=== PATIENT | male | born 1960 | race Hispanic/Latino ===

== ENCOUNTER 2020-02-22 20:30 | Inpatient (IN) | payer MEDICARE ==
[2020-02-22] MEDS ORDERED: LORazepam 2 MG/ML VIAL ONE (20:45)
[2020-02-22] MEDS ORDERED: LORazepam 2 MG/ML VIAL IV ONE ×2 (20:48→21:42)
[2020-02-22] MEDS ORDERED: ONDANSETRON 4 MG/2 ML INJ IV ONE (20:53)
--- NOTE | 2020-02-22 21:01 | Emergency Department Report ---
ED Altered Mental Status HPI - General Chief Complaint: Altered Mental Status Stated Complaint: UNCONSCIOUSNESS Time Seen by Provider: 02/22/20 20:52 Source: EMS Mode of arrival: Stretcher Limitations: Other - History of Present Illness Initial Comments: Patient is 59 years old male with history of diabetes and left below knee amputation. Patient brought to the emergency room via EMS from home for evaluation of altered mental status. EMS stated that when they arrived at the scene patient was on the floor unresponsive however patient became combative and very agitated in route to the ER. EMS also reported seizure-like activity that aborted by itself just prior to coming to the ER. Family called 911 because patient was not responding to their call. Upon arrival to the ER patient is combative with a blood pressure of 220/120. Patient received Ativan 2 mg IV for sedation. Patient also given labetalol 20 mg IV. MD Complaint: altered mental status, decreased responsiveness -: unknown - Related Data Home Medications Medication Instructions Recorded Confirmed Last Taken Insulin Glargine,Hum.rec.anlog 35 unit SQ QDAY 09/14/14 01/10/16 01/09/16 08:00 [Lantus Solostar] 34 UNITS Gabapentin [Neurontin] 400 mg PO Q8HR 01/09/16 01/09/16 01/10/16 06:00 Insulin Lispro [HumaLOG VIAL] 0 units SQ AC 01/09/16 01/10/16 01/08/16 Omeprazole Magnesium [PriLOSEC Otc] 20 mg PO QDAY 01/09/16 01/10/16 01/09/16 06:00 Oxycodone HCl/Acetaminophen 1 each PO Q4-6H PRN 01/09/16 01/09/16 01/10/16 06:00 [Percocet 10/325 mg] Sertraline [Zoloft] 50 mg PO QDAY 01/09/16 01/10/16 01/09/16 19:00 Previous Rx's Medication Instructions Recorded Last Taken Type Losartan [Cozaar] 25 mg PO QDAY #30 tablet 10/31/15 01/06/16 Rx Gabapentin 400 mg PO Q8HR capsule 01/11/16 Unknown Rx Insulin Glargine [Lantus VIAL] 35 units SUB-Q QHS units 01/11/16 Unknown Rx Insulin Glulisine [Apidra] 0 units SUB-Q ACHS units 01/11/16 Unknown Rx Losartan [Cozaar] 25 mg PO QDAY tablet 01/11/16 Unknown Rx Sertraline [Zoloft] 50 mg PO QDAY tablet 01/11/16 Unknown Rx Sodium Chloride 0.9% 1000 ml [NaCl 1,000 ml IV DIRECT bag 01/11/16 Unknown Rx 0.9 1000 ML] oxyCODONE /ACETAMINOPHEN [Percocet 2 tab PO Q6HR PRN #30 tablet 01/11/16 Unknown Rx 5/325 mg] Allergies Allergy/AdvReac Type Severity Reaction Status Date / Time Sulfa (Sulfonamide Allergy Hives, Verified 09/15/14 11:22 Antibiotics) Itching Iodinated Contrast Media AdvReac Vomiting Verified 09/15/14 11:22 [Iodinated Contrast Media - IV Dye] ED Review of Systems ROS: Stated complaint: UNCONSCIOUSNESS Other details as noted in HPI Comment: Unobtainable due to pts medical conditions ED Past Medical Hx - Past Medical History Previous Medical History?: Yes Hx Hypertension: Yes Hx Congestive Heart Failure: No Hx Diabetes: Yes (:For last 5yrs) Hx Liver Disease: Yes (Hep C, cirrhosis, portal HTN) Hx Arthritis: Yes (:in shoulders) Hx Kidney Stones: Yes Hx Asthma: No Hx COPD: No Hx HIV: No - Surgical History Past Surgical History?: No Hx Pacemaker: No - Social History Smoking Status: Unknown if ever smoked - Medications Home Medications: Home Medications Medication Instructions Recorded Confirmed Last Taken Type Insulin Glargine,Hum.rec.anlog 35 unit SQ QDAY 09/14/14 01/10/16 01/09/16 08:00 History [Lantus Solostar] 34 UNITS Losartan [Cozaar] 25 mg PO QDAY #30 tablet 10/31/15 01/10/16 01/06/16 Rx Gabapentin [Neurontin] 400 mg PO Q8HR 01/09/16 01/09/16 01/10/16 06:00 History Insulin Lispro [HumaLOG VIAL] 0 units SQ AC 01/09/16 01/10/16 01/08/16 History Omeprazole Magnesium [PriLOSEC Otc] 20 mg PO QDAY 01/09/16 01/10/16 01/09/16 06:00 History Oxycodone HCl/Acetaminophen 1 each PO Q4-6H PRN 01/09/16 01/09/16 01/10/16 06:00 History [Percocet 10/325 mg] Sertraline [Zoloft] 50 mg PO QDAY 01/09/16 01/10/16 01/09/16 19:00 History Gabapentin 400 mg PO Q8HR capsule 01/11/16 Unknown Rx Insulin Glargine [Lantus VIAL] 35 units SUB-Q QHS units 01/11/16 Unknown Rx Insulin Glulisine [Apidra] 0 units SUB-Q ACHS units 01/11/16 Unknown Rx Losartan [Cozaar] 25 mg PO QDAY tablet 01/11/16 Unknown Rx Sertraline [Zoloft] 50 mg PO QDAY tablet 01/11/16 Unknown Rx Sodium Chloride 0.9% 1000 ml [NaCl 1,000 ml IV DIRECT bag 01/11/16 Unknown Rx 0.9 1000 ML] oxyCODONE /ACETAMINOPHEN [Percocet 2 tab PO Q6HR PRN #30 tablet 01/11/16 Unknown Rx 5/325 mg] ED Physical Exam - General Limitations: Other General appearance: anxious, other (AGITATED) - Head Head exam: Present: atraumatic, normocephalic, normal inspection - Eye Eye exam: Present: PERRL - ENT ENT exam: Present: normal exam, normal orophraynx, mucous membranes moist - Neck Neck exam: Present: normal inspection, full ROM. Absent: tenderness, meningismus - Respiratory Respiratory exam: Present: normal lung sounds bilaterally - Cardiovascular Cardiovascular Exam: Present: regular rate, normal rhythm, normal heart sounds - GI/Abdominal GI/Abdominal exam: Present: soft, normal bowel sounds. Absent: distended, tenderness, guarding, rebound, rigid, organomegaly, mass, bruit, pulsatile mass, hernia - Extremities Exam Extremities exam: Present: normal inspection - Back Exam Back exam: Present: normal inspection. Absent: CVA tenderness (R), CVA tenderness (L) - Neurological Exam Neurological exam: Present: alert, altered, CN II-XII intact. Absent: motor sensory deficit - Psychiatric Psychiatric exam: Present: agitated, anxious - Skin Skin exam: Present: warm, intact, normal color ED Course Vital Signs 02/22/20 02/22/20 02/22/20 20:57 20:59 21:00 Pulse Rate Respiratory Rate Blood Pressure 222/113 203/114 O2 Sat by Pulse 99 Oximetry 02/22/20 02/22/20 02/22/20 21:01 21:15 21:37 Pulse Rate 101 H Respiratory 17 13 Rate Blood Pressure 203/114 203/114 203/114 O2 Sat by Pulse 100 97 Oximetry 02/22/20 02/22/20 02/22/20 21:58 22:15 22:31 Pulse Rate Respiratory 20 Rate Blood Pressure 203/114 225/91 O2 Sat by Pulse 98 99 96 Oximetry 02/22/20 02/22/20 02/22/20 22:35 22:41 22:50 Pulse Rate 111 H Respiratory Rate Blood Pressure 225/91 225/91 203/114 O2 Sat by Pulse 99 99 97 Oximetry 02/22/20 02/22/20 02/22/20 23:01 23:15 23:21 Pulse Rate Respiratory Rate Blood Pressure 203/114 203/114 203/114 O2 Sat by Pulse 93 98 98 Oximetry 02/22/20 02/23/20 02/23/20 23:32 00:20 00:30 Pulse Rate Respiratory Rate Blood Pressure 116/73 174/94 189/106 O2 Sat by Pulse Oximetry - Lab Data Result diagrams: 02/22/20 21:10 02/23/20 14:55 Lab Results 02/22/20 02/22/20 02/22/20 Range/Units 21:10 21:10 21:10 WBC 15.6 H (4.5-11.0) K/mm3 RBC 4.82 (3.65-5.03) M/mm3 Hgb 15.2 (11.8-15.2) gm/dl Hct 45.4 (35.5-45.6) % MCV 94 (84-94) fl MCH 32 (28-32) pg MCHC 34 (32-34) % RDW 14.1 (13.2-15.2) % Plt Count 79 L (140-440) K/mm3 Add Manual Diff Complete Total Counted 100 Seg Neutrophils % Reel Stripper Seg Neuts % (Manual) 90.0 H (40.0-70.0) % Band Neutrophils % 2.0 % Lymphocytes % (Manual) 4.0 L (13.4-35.0) % Reactive Lymphs % (Man) 0 % Monocytes % (Manual) 4.0 (0.0-7.3) % Eosinophils % (Manual) 0 (0.0-4.3) % Basophils % (Manual) 0 (0.0-1.8) % Metamyelocytes % 0 % Myelocytes % 0 % Promyelocytes % 0 % Blast Cells % 0 % Nucleated RBC % Not Reportable Seg Neutrophils # Man 14.0 H (1.8-7.7) K/mm3 Band Neutrophils # 0.3 K/mm3 Lymphocytes # (Manual) 0.6 L (1.2-5.4) K/mm3 Abs React Lymphs (Man) 0.0 K/mm3 Monocytes # (Manual) 0.6 (0.0-0.8) K/mm3 Eosinophils # (Manual) 0.0 (0.0-0.4) K/mm3 Basophils # (Manual) 0.0 (0.0-0.1) K/mm3 Metamyelocytes # 0.0 K/mm3 Myelocytes # 0.0 K/mm3 Promyelocytes # 0.0 K/mm3 Blast Cells # 0.0 K/mm3 WBC Morphology Not Reportable Hypersegmented Neuts Not Reportable Hyposegmented Neuts Not Reportable Hypogranular Neuts Not Reportable Smudge Cells Not Reportable Toxic Granulation Not Reportable Toxic Vacuolation Not Reportable Dohle Bodies Not Reportable Pelger-Huet Anomaly Not Reportable Yoan Rods Not Reportable Platelet Estimate Consistent w auto Clumped Platelets Not Reportable Plt Clumps, EDTA Not Reportable Large Platelets Not Reportable Giant Platelets Not Reportable Platelet Satelliting Not Reportable Plt Morphology Comment Not Reportable RBC Morphology Normal Dimorphic RBCs Not Reportable Polychromasia Not Reportable Hypochromasia Not Reportable Poikilocytosis Not Reportable Anisocytosis Not Reportable Microcytosis Not Reportable Macrocytosis Not Reportable Spherocytes Not Reportable Pappenheimer Bodies Not Reportable Sickle Cells Not Reportable Target Cells Not Reportable Tear Drop Cells Not Reportable Ovalocytes Not Reportable Helmet Cells Not Reportable Barrientos-Gideon Bodies Not Reportable [place] Rings Not Reportable Patrick Cells Not Reportable Bite Cells Not Reportable Crenated Cell Not Reportable Elliptocytes Not Reportable Acanthocytes (Spur) Not Reportable Rouleaux Not Reportable Hemoglobin C Crystals Not Reportable Schistocytes Not Reportable Malaria parasites Not Reportable Atul Bodies Not Reportable Hem Pathologist Commnt No Sodium 137 (137-145) mmol/L Potassium 4.9 (3.6-5.0) mmol/L Chloride 100.4 (98-107) mmol/L Carbon Dioxide 20 L (22-30) mmol/L Anion Gap 22 mmol/L BUN 21 H (9-20) mg/dL Creatinine 1.5 H (0.8-1.3) mg/dL Estimated GFR 48 ml/min BUN/Creatinine Ratio 14 % Glucose 158 H (75-100) mg/dL Lactic Acid 6.40 H* (0.7-2.0) mmol/L Calcium 9.6 (8.4-10.2) mg/dL Total Bilirubin 0.90 (0.1-1.2) mg/dL Direct Bilirubin 0.3 H (0-0.2) mg/dL Indirect Bilirubin 0.6 mg/dL AST 31 (5-40) units/L ALT 30 (7-56) units/L Alkaline Phosphatase 87 (35-129) units/L Ammonia (25-60) umol/L Total Creatine Kinase 393 H (55-170) units/L Troponin T 0.012 (0.00-0.029) ng/mL Total Protein 7.9 (6.3-8.2) g/dL Albumin 4.3 (3.9-5) g/dL Albumin/Globulin Ratio 1.2 % TSH (0.270-4.200) mlU/mL Plasma/Serum Alcohol (0-0.07) % 02/22/20 02/22/20 02/22/20 Range/Units 21:10 21:10 21:10 WBC (4.5-11.0) K/mm3 RBC (3.65-5.03) M/mm3 Hgb (11.8-15.2) gm/dl Hct (35.5-45.6) % MCV (84-94) fl MCH (28-32) pg MCHC (32-34) % RDW (13.2-15.2) % Plt Count (140-440) K/mm3 Add Manual Diff Total Counted Seg Neutrophils % Seg Neuts % (Manual) (40.0-70.0) % Band Neutrophils % % Lymphocytes % (Manual) (13.4-35.0) % Reactive Lymphs % (Man) % Monocytes % (Manual) (0.0-7.3) % Eosinophils % (Manual) (0.0-4.3) % Basophils % (Manual) (0.0-1.8) % Metamyelocytes % % Myelocytes % % Promyelocytes % % Blast Cells % % Nucleated RBC % Seg Neutrophils # Man (1.8-7.7) K/mm3 Band Neutrophils # K/mm3 Lymphocytes # (Manual) (1.2-5.4) K/mm3 Abs React Lymphs (Man) K/mm3 Monocytes # (Manual) (0.0-0.8) K/mm3 Eosinophils # (Manual) (0.0-0.4) K/mm3 Basophils # (Manual) (0.0-0.1) K/mm3 Metamyelocytes # K/mm3 Myelocytes # K/mm3 Promyelocytes # K/mm3 Blast Cells # K/mm3 WBC Morphology Hypersegmented Neuts Hyposegmented Neuts Hypogranular Neuts Smudge Cells Toxic Granulation Toxic Vacuolation Dohle Bodies Pelger-Huet Anomaly Yoan Rods Platelet Estimate Clumped Platelets Plt Clumps, EDTA Large Platelets Giant Platelets Platelet Satelliting Plt Morphology Comment RBC Morphology Dimorphic RBCs Polychromasia Hypochromasia Poikilocytosis Anisocytosis Microcytosis Macrocytosis Spherocytes Pappenheimer Bodies Sickle Cells Target Cells Tear Drop Cells Ovalocytes Helmet Cells Barrientos-Gideon Bodies [place] Rings Patrick Cells Bite Cells Crenated Cell Elliptocytes Acanthocytes (Spur) Rouleaux Hemoglobin C Crystals Schistocytes Malaria parasites Atul Bodies Hem Pathologist Commnt Sodium (137-145) mmol/L Potassium (3.6-5.0) mmol/L Chloride (98-107) mmol/L Carbon Dioxide (22-30) mmol/L Anion Gap mmol/L BUN (9-20) mg/dL Creatinine (0.8-1.3) mg/dL Estimated GFR ml/min BUN/Creatinine Ratio % Glucose (75-100) mg/dL Lactic Acid (0.7-2.0) mmol/L Calcium (8.4-10.2) mg/dL Total Bilirubin (0.1-1.2) mg/dL Direct Bilirubin (0-0.2) mg/dL Indirect Bilirubin mg/dL AST (5-40) units/L ALT (7-56) units/L Alkaline Phosphatase (35-129) units/L Ammonia 32.0 (25-60) umol/L Total Creatine Kinase (55-170) units/L Troponin T (0.00-0.029) ng/mL Total Protein (6.3-8.2) g/dL Albumin (3.9-5) g/dL Albumin/Globulin Ratio % TSH 4.520 H (0.270-4.200) mlU/mL Plasma/Serum Alcohol < 0.01 (0-0.07) % 02/22/20 02/22/20 Range/Units 22:28 22:28 WBC (4.5-11.0) K/mm3 RBC (3.65-5.03) M/mm3 Hgb (11.8-15.2) gm/dl Hct (35.5-45.6) % MCV (84-94) fl MCH (28-32) pg MCHC (32-34) % RDW (13.2-15.2) % Plt Count (140-440) K/mm3 Add Manual Diff Total Counted Seg Neutrophils % Seg Neuts % (Manual) (40.0-70.0) % Band Neutrophils % % Lymphocytes % (Manual) (13.4-35.0) % Reactive Lymphs % (Man) % Monocytes % (Manual) (0.0-7.3) % Eosinophils % (Manual) (0.0-4.3) % Basophils % (Manual) (0.0-1.8) % Metamyelocytes % % Myelocytes % % Promyelocytes % % Blast Cells % % Nucleated RBC % Seg Neutrophils # Man (1.8-7.7) K/mm3 Band Neutrophils # K/mm3 Lymphocytes # (Manual) (1.2-5.4) K/mm3 Abs React Lymphs (Man) K/mm3 Monocytes # (Manual) (0.0-0.8) K/mm3 Eosinophils # (Manual) (0.0-0.4) K/mm3 Basophils # (Manual) (0.0-0.1) K/mm3 Metamyelocytes # K/mm3 Myelocytes # K/mm3 Promyelocytes # K/mm3 Blast Cells # K/mm3 WBC Morphology Hypersegmented Neuts Hyposegmented Neuts Hypogranular Neuts Smudge Cells Toxic Granulation Toxic Vacuolation Dohle Bodies Pelger-Huet Anomaly Yoan Rods Platelet Estimate Clumped Platelets Plt Clumps, EDTA Large Platelets Giant Platelets Platelet Satelliting Plt Morphology Comment RBC Morphology Dimorphic RBCs Polychromasia Hypochromasia Poikilocytosis Anisocytosis Microcytosis Macrocytosis Spherocytes Pappenheimer Bodies Sickle Cells Target Cells Tear Drop Cells Ovalocytes Helmet Cells Barrientos-Gideon Bodies [place] Rings [place] Cells Bite Cells Crenated Cell Elliptocytes Acanthocytes (Spur) Rouleaux Hemoglobin C Crystals Schistocytes Malaria parasites Atul Bodies Hem Pathologist Commnt Sodium (137-145) mmol/L Potassium (3.6-5.0) mmol/L Chloride (98-107) mmol/L Carbon Dioxide (22-30) mmol/L Anion Gap mmol/L BUN (9-20) mg/dL Creatinine (0.8-1.3) mg/dL Estimated GFR ml/min BUN/Creatinine Ratio % Glucose (75-100) mg/dL Lactic Acid 4.80 H* (0.7-2.0) mmol/L Calcium (8.4-10.2) mg/dL Total Bilirubin (0.1-1.2) mg/dL Direct Bilirubin (0-0.2) mg/dL Indirect Bilirubin mg/dL AST (5-40) units/L ALT (7-56) units/L Alkaline Phosphatase (35-129) units/L Ammonia (25-60) umol/L Total Creatine Kinase (55-170) units/L Troponin T 0.020 (0.00-0.029) ng/mL Total Protein (6.3-8.2) g/dL Albumin (3.9-5) g/dL Albumin/Globulin Ratio % TSH (0.270-4.200) mlU/mL Plasma/Serum Alcohol (0-0.07) % - Radiology Data Radiology results: report reviewed - Medical Decision Making Patient is 59 years old male with history of diabetes and left below knee amputation. Patient brought to the emergency room via EMS from home for evaluation of altered mental status. EMS stated that when they arrived at the scene patient was on the floor unresponsive however patient became combative and very agitated in route to the ER. EMS also reported seizure-like activity that aborted by itself just prior to coming to the ER. Family called 911 because patient was not responding to their call. Upon arrival to the ER patient is combative with a blood pressure of 220/120. Patient received Ativan 2 mg IV for sedation. Patient also given labetalol 20 mg IV. Labs reviewed and showed elevated white blood cells of 15. Lactic acid is 6. Patient started on normal saline and given Zosyn for possible sepsis. CT brain is negative for acute finding. Chest x-ray is unremarkable. Urinalysis is still pending. I discussed the patient with , he agreed to admit the patient to the [facility] for further management. Critical Care Time: Yes Critical care time in (mins) excluding proc time.: 30 Critical care attestation.: If time is entered above; I have spent that time in minutes in the direct care of this critically ill patient, excluding procedure time. ED Disposition Clinical Impression: Altered mental status, Seizure, Hypertensive emergency Disposition: [id number] OP ADMIT IP TO THIS HOSP Is pt being admited?: Yes Condition: Stable
[2020-02-22 21:26] LABS: Hematocrit 45.4 % (35.5-45.6); Hemoglobin 15.2 gm/dl (11.8-15.2); Mean Corpuscular HGB Conc 34 % (32-34); Mean Corpuscular Volume 94 fl (84-94); Red Blood Count 4.82 M/mm3 (3.65-5.03); Red Cell Distribution Width 14.1 % (13.2-15.2)
[2020-02-22 21:29] LABS: Platelet Count 79 K/mm3 (140-440)
[2020-02-22 21:48] LABS: Albumin 4.3 g/dL (3.9-5); Bilirubin,Direct 0.3 mg/dL (0-0.2); Calcium 9.6 mg/dL (8.4-10.2)
[2020-02-22] MEDS ORDERED: SODIUM CHLORIDE 0.9% 1000 ML IV SOLN IV ONE (21:54)
[2020-02-22] MEDS ORDERED: PIPERACILLIN/TAZOBACTAM 3.375 3.375 GM/50 ML BAG IV ONE (21:56)
--- NOTE | 2020-02-22 22:17 | XRay Report ---
CHEST 1 VIEW INDICATION / CLINICAL INFORMATION: MAIN. COMPARISON: 09/27/2019 FINDINGS: SUPPORT DEVICES: None. HEART / MEDIASTINUM: Stable. LUNGS / PLEURA: No significant pulmonary or pleural abnormality. No pneumothorax. ADDITIONAL FINDINGS: No significant additional findings. IMPRESSION: 1. No acute cardiopulmonary process. Signer Name: Lobo Esteban MD Signed: 02/22/2020 10:13 PM Workstation Name: [id number]
--- NOTE | 2020-02-22 22:17 | Cat Scan Report ---
NONENHANCED CT SCAN OF THE HEAD: INDICATION / CLINICAL INFORMATION: 59 years Male; Altered Mental Status. TECHNIQUE: Routine CT head without contrast. All CT scans at this location are performed using CT dos e reduction for ALARA by means of automated exposure control. COMPARISON: CT scan of the head from 03/29/2015 FINDINGS: BRAIN / INTRACRANIAL CONTENTS: Some of the images are marred by motion related artifacts No large space taking lesion in the brain; no hemorrhagic lesion; no midline shift; mild cortical inv olution CRANIOCERVICAL JUNCTION: No significant abnormality. ORBITS: No significant abnormality of visualized orbits. SINUSES / MASTOIDS: No significant abnormality of the visualized paranasal sinuses or mastoid air salvatore ls. ADDITIONAL FINDINGS: None. IMPRESSION: Limited CT scan due to motion related artifacts No large space taking lesion or hemorrhage or midline shift Signer Name: Christy Haas MD Signed: 02/22/2020 10:12 PM Workstation Name: [id number]
[2020-02-22 22:24] LABS: Band Neutrophils # (Manual) 0.3 K/mm3; Basophils % (Manual) 0 % (0.0-1.8); Eosinophils % (Manual) 0 % (0.0-4.3); Total Cells Counted 100
[2020-02-22 22:25] LABS: Platelet Estimate Consistent w Auto; RBC Morphology Normal
[2020-02-22] MEDS ORDERED: levETIRAcetam 1000 MG/NS 0.75% 1,000 MG/100 ML BAG IV ONE (22:41)
[2020-02-23] MEDS ORDERED: ACETAMINOPHEN 325 MG TAB PO PRN (01:42)
[2020-02-23] MEDS ORDERED: DEXTROSE 50% IN WATER (25GM) 50 ML SYRINGE IV PRN (01:42)
[2020-02-23] MEDS ORDERED: ONDANSETRON 4 MG/2 ML INJ IV PRN (01:42)
[2020-02-23] MEDS ORDERED: MORPHINE 2 MG/1 ML INJ IV PRN (01:42)
[2020-02-23] MEDS ORDERED: MAGNESIUM HYDROXIDE (MOM) ORAL LIQD UDC PO PRN (01:42)
[2020-02-23] MEDS ORDERED: SODIUM CHLORIDE 0.9% 1000 ML 1,000 ML IV SCH (01:45)
[2020-02-23] MEDS ORDERED: LORazepam 2 MG/ML VIAL IV PRN ×2 (01:52→18:41)
--- NOTE | 2020-02-23 01:58 | History and Physical Report ---
History of Present Illness Date of examination: 02/23/20 Date of admission: 02/23/20 00:24 Chief complaint: Altered Mental Status Seizure disorder History of present illness: 59-year-old white male with known history of diabetes mellitus, history of hepatitis C with liver cirrhosis, hypertension, brought into the emergency room by EMS for evaluation of changes in mental status. Patient was found on the floor by EMS unresponsive and was said to be agitated and combative in route to the emergency room. He had seizure-like activity which subsided prior to repor ting to the emergency room. Patient lives alone and family was said to have been calling him all day without any response and therefore 911 was called to patient's home. Upon arrival in the emergency room patient had a significantly elevated blood pressure with systolic of 220 and diastolic of 120. He was given IV labetalol with significant improvement in his blood pressure. He was also given 2 mg IV lorazepam for sedation. Patient unable to give any history because of his mental status. Work-up in the emergency room today reveals a lactic acid of 6.0, CT scan of the head was negative chest x-ray was also negative. Patient was given IV Keppra to be admitted for evaluation of his changes in mental status and seizure disorder. Past History Past Medical History: arthritis, diabetes, liver disease, other (Portal hypertension,Hepatitis C,Kidney stones) Past Surgical History: Other (Left BKA) Social history: Lives alone Family history: no significant family history Medications and Allergies Allergies Allergy/AdvReac Type Severity Reaction Status Date / Time Sulfa (Sulfonamide Allergy Hives, Verified 09/15/14 11:22 Antibiotics) Itching Iodinated Contrast Media AdvReac Vomiting Verified 09/15/14 11:22 [Iodinated Contrast Media - IV Dye] Home Medications Medication Instructions Recorded Confirmed Last Taken Type Insulin Glargine,Hum.rec.anlog 35 unit SQ QDAY 09/14/14 01/10/16 01/09/16 08:00 History [Lantus Solostar] 34 UNITS Losartan [Cozaar] 25 mg PO QDAY #30 tablet 10/31/15 01/10/16 01/06/16 Rx Gabapentin [Neurontin] 400 mg PO Q8HR 01/09/16 01/09/16 01/10/16 06:00 History Insulin Lispro [HumaLOG VIAL] 0 units SQ AC 01/09/16 01/10/16 01/08/16 History Omeprazole Magnesium [PriLOSEC Otc] 20 mg PO QDAY 01/09/16 01/10/16 01/09/16 06:00 History Oxycodone HCl/Acetaminophen 1 each PO Q4-6H PRN 01/09/16 01/09/16 01/10/16 06:00 History [Percocet 10/325 mg] Sertraline [Zoloft] 50 mg PO QDAY 01/09/16 01/10/16 01/09/16 19:00 History Gabapentin 400 mg PO Q8HR capsule 01/11/16 Unknown Rx Insulin Glargine [Lantus VIAL] 35 units SUB-Q QHS units 01/11/16 Unknown Rx Insulin Glulisine [Apidra] 0 units SUB-Q ACHS units 01/11/16 Unknown Rx Losartan [Cozaar] 25 mg PO QDAY tablet 01/11/16 Unknown Rx Sertraline [Zoloft] 50 mg PO QDAY tablet 01/11/16 Unknown Rx Sodium Chloride 0.9% 1000 ml [NaCl 1,000 ml IV DIRECT bag 01/11/16 Unknown Rx 0.9 1000 ML] oxyCODONE /ACETAMINOPHEN [Percocet 2 tab PO Q6HR PRN #30 tablet 01/11/16 Unknown Rx 5/325 mg] Active Meds: Active Medications Acetaminophen (Tylenol) 650 mg PO Q4H PRN PRN Reason: Pain MILD(1-3)/Fever >100.5/EDWARD Dextrose (D50w (25gm) Syringe) 50 ml IV Q30MIN PRN; Protocol PRN Reason: Hypoglycemia Dextrose (D50w (25gm) Syringe) 50 ml IV Q30MIN PRN; Protocol PRN Reason: Hypoglycemia Heparin Sodium (Porcine) (Heparin) 5,000 unit SUB-Q Q8HR LYNN Sodium Chloride (Nacl 0.9% 1000 Ml) 1,000 mls @ 125 mls/hr IV DIRECT LYNN Levetiracetam 500 mg/ Dextrose 105 mls @ 400 mls/hr IV Q12HR LYNN Insulin Human Lispro (Humalog) 0 unit SUB-Q ACHS LYNN; Protocol Insulin Human Lispro (Humalog) 0 unit SUB-Q ACHS LYNN; Protocol Lorazepam (Ativan) 2 mg IV Q4H PRN PRN Reason: Seizures Magnesium Hydroxide (Milk Of Magnesia) 30 ml PO Q4H PRN PRN Reason: Constipation Morphine Sulfate (Morphine) 2 mg IV Q4H PRN PRN Reason: Pain, Moderate (4-6) Ondansetron HCl (Zofran) 4 mg IV Q8H PRN PRN Reason: Nausea And Vomiting Sodium Chloride (Sodium Chloride Flush Syringe 10 Ml) 10 ml IV BID LYNN Sodium Chloride (Sodium Chloride Flush Syringe 10 Ml) 10 ml IV PRN PRN PRN Reason: LINE FLUSH Review of Systems ROS unobtainable: due to mental status Exam - Constitutional Vitals: Temp Pulse Resp BP Pulse Ox 111 H 20 225/91 96 02/22/20 22:50 02/22/20 21:58 02/22/20 22:50 02/22/20 22:31 General appearance: Present: no acute distress, well-nourished - EENT Eyes: Present: PERRL, EOM intact. Absent: scleral icterus ENT: hearing intact, clear oral mucosa, dentition normal - Neck Neck: Present: supple, normal ROM - Respiratory Respiratory effort: normal Respiratory: bilateral: CTA - Cardiovascular Rhythm: regular Heart Sounds: Present: S1 & S2. Absent: gallop, systolic murmur, diastolic murmur, rub - Extremities Extremities: no ischemia, pulses intact (On right lower extremity), Full ROM, abnormal (Left BKA with prosthesis in place.) Peripheral Pulses: within normal limits - Abdominal General gastrointestinal: Present: soft, non-tender, non-distended, normal bowel sounds. Absent: mass - Integumentary Integumentary: Present: clear, warm, dry. Absent: rash - Musculoskeletal Musculoskeletal: strength equal bilaterally - Psychiatric Psychiatric: agitated - Neurologic Neurologic: CNII-XII intact, no focal deficits, moves all extremities HEART Score - HEART Score Troponin: Troponin T 0.020 ng/mL (0.00-0.029) 02/22/20 22:28 Results - Labs CBC & Chem 7: 02/22/20 21:10 02/22/20 21:10 Labs: Abnormal lab results 02/22/20 02/22/20 02/22/20 Range/Units 21:10 21:10 21:10 WBC 15.6 H (4.5-11.0) K/mm3 Plt Count 79 L (140-440) K/mm3 Seg Neuts % (Manual) 90.0 H (40.0-70.0) % Lymphocytes % (Manual) 4.0 L (13.4-35.0) % Seg Neutrophils # Man 14.0 H (1.8-7.7) K/mm3 Lymphocytes # (Manual) 0.6 L (1.2-5.4) K/mm3 Carbon Dioxide 20 L (22-30) mmol/L BUN 21 H (9-20) mg/dL Creatinine 1.5 H (0.8-1.3) mg/dL Glucose 158 H (75-100) mg/dL Lactic Acid 6.40 H* (0.7-2.0) mmol/L Direct Bilirubin 0.3 H (0-0.2) mg/dL Total Creatine Kinase 393 H (55-170) units/L TSH (0.270-4.200) mlU/mL 02/22/20 02/22/20 Range/Units 21:10 22:28 WBC (4.5-11.0) K/mm3 Plt Count (140-440) K/mm3 Seg Neuts % (Manual) (40.0-70.0) % Lymphocytes % (Manual) (13.4-35.0) % Seg Neutrophils # Man (1.8-7.7) K/mm3 Lymphocytes # (Manual) (1.2-5.4) K/mm3 Carbon Dioxide (22-30) mmol/L BUN (9-20) mg/dL Creatinine (0.8-1.3) mg/dL Glucose (75-100) mg/dL Lactic Acid 4.80 H* (0.7-2.0) mmol/L Direct Bilirubin (0-0.2) mg/dL Total Creatine Kinase (55-170) units/L TSH 4.520 H (0.270-4.200) mlU/mL Assessment and Plan - Patient Problems (1) Altered mental status Current Visit: Yes Status: Acute Plan to address problem: Possibly secondary to seizure disorder. Currently possibly postictal. We will monitor closely and also place on seizure precautions. (2) Hypertensive emergency Current Visit: Yes Status: Acute Plan to address problem: We will place patient on IV medication as needed for blood pressure control. Will monitor vital signs closely. (3) Seizure Current Visit: Yes Status: Acute Plan to address problem: Patient started on Keppra. We will request neurology evaluation. We will also request EEG. 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 (5) Lactic acidosis Current Visit: Yes Status: Acute Plan to address problem: Possibly secondary to the seizure activity. Will monitor chemistry and continue IV fluid. (6) DVT prophylaxis Current Visit: Yes Status: Acute Plan to address problem: Patient placed on subcutaneous heparin. (7) Full code status Current Visit: Yes Status: Acute
[2020-02-23] MEDS: HEPARIN 5,000 UNIT/1 ML VIAL SUB-Q SCH ×3 (06:30→21:48)
[2020-02-23] MEDS ORDERED: INSULIN LISPRO 100 UNIT/ML VIAL 3 mL SUB-Q SCH (07:30)
[2020-02-23 08:01] LABS: Bilirubin,Urine NEG (Negative); Blood,Urine LG (Negative); Color,Urine Yellow (Yellow); Mucus,Urine FEW /HPF; Urobilinogen,Urine < 2.0 mg/dL (<2.0)
[2020-02-23 08:02] LABS: Protein,Urine >500 mg/dL (Negative)
[2020-02-23 08:09] LABS: Amphetamine Screen,Urine Negative; Benzodiazepines Screen,Urine Negative; Cocaine Screen,Urine Negative; Methadone Screen,Urine Negative; Opiate Screen,Urine Negative
[2020-02-23] MEDS: INSULIN LISPRO 100 UNIT/ML VIAL 3 mL SUB-Q SCH ×4 (08:22→21:48)
[2020-02-23 08:59] LABS: Cannabinoid Screen,Urine PRESUMPTIVE POSITIVE
--- NOTE | 2020-02-23 09:39 | Consultation ---
History of Present Illness Consult date: 02/23/20 Requesting physician: KEI CALVO Reason for Consult: Seizure Chief complaint: Seizure History of present illness: 59 yo male with liver dx (portal htn), dm, arthritis, who presents where he was found unresponsive on the floor and then became combative with EMS personnel. En route, he was witnessed with seizure-like activity per EMS. Patient refuses to cooperate with interview. Past History Past Medical History: arthritis, diabetes, liver disease, other (Portal hypertension,Hepatitis C,Kidney stones) Past Surgical History: Other (Left BKA) Social history: Lives alone Family history: no significant family history Medications and Allergies Allergies Allergy/AdvReac Type Severity Reaction Status Date / Time Sulfa (Sulfonamide Allergy Hives, Verified 09/15/14 11:22 Antibiotics) Itching Iodinated Contrast Media AdvReac Vomiting Verified 09/15/14 11:22 [Iodinated Contrast Media - IV Dye] Home Medications Medication Instructions Recorded Confirmed Last Taken Type Insulin Glargine,Hum.rec.anlog 35 unit SQ QDAY 09/14/14 01/10/16 01/09/16 08:00 History [Lantus Solostar] 34 UNITS Losartan [Cozaar] 25 mg PO QDAY #30 tablet 10/31/15 01/10/16 01/06/16 Rx Gabapentin [Neurontin] 400 mg PO Q8HR 01/09/16 01/09/16 01/10/16 06:00 History Insulin Lispro [HumaLOG VIAL] 0 units SQ AC 01/09/16 01/10/16 01/08/16 History Omeprazole Magnesium [PriLOSEC Otc] 20 mg PO QDAY 01/09/16 01/10/16 01/09/16 06:00 History Oxycodone HCl/Acetaminophen 1 each PO Q4-6H PRN 01/09/16 01/09/16 01/10/16 06:00 History [Percocet 10/325 mg] Sertraline [Zoloft] 50 mg PO QDAY 01/09/16 01/10/16 01/09/16 19:00 History Gabapentin 400 mg PO Q8HR capsule 01/11/16 Unknown Rx Insulin Glargine [Lantus VIAL] 35 units SUB-Q QHS units 01/11/16 Unknown Rx Insulin Glulisine [Apidra] 0 units SUB-Q ACHS units 01/11/16 Unknown Rx Losartan [Cozaar] 25 mg PO QDAY tablet 01/11/16 Unknown Rx Sertraline [Zoloft] 50 mg PO QDAY tablet 01/11/16 Unknown Rx Sodium Chloride 0.9% 1000 ml [NaCl 1,000 ml IV DIRECT bag 01/11/16 Unknown Rx 0.9 1000 ML] oxyCODONE /ACETAMINOPHEN [Percocet 2 tab PO Q6HR PRN #30 tablet 01/11/16 Unknown Rx 5/325 mg] Active Meds: Active Medications Acetaminophen (Tylenol) 650 mg PO Q4H PRN PRN Reason: Pain MILD(1-3)/Fever >100.5/EDWARD Dextrose (D50w (25gm) Syringe) 50 ml IV Q30MIN PRN; Protocol PRN Reason: Hypoglycemia Heparin Sodium (Porcine) (Heparin) 5,000 unit SUB-Q Q8HR LYNN Last Admin: 02/23/20 06:30 Dose: 5,000 unit Documented by: Sodium Chloride (Nacl 0.9% 1000 Ml) 1,000 mls @ 125 mls/hr IV DIRECT LYNN Levetiracetam 500 mg/ Dextrose 105 mls @ 400 mls/hr IV Q12HR LYNN Insulin Human Lispro (Humalog) 0 unit SUB-Q ACHS LYNN; Protocol Last Admin: 02/23/20 08:22 Dose: Not Given Documented by: Labetalol HCl (Labetalol) 10 mg IV Q6HR PRN PRN Reason: Blood Pressure Last Admin: 02/23/20 07:22 Dose: 10 mg Documented by: Lorazepam (Ativan) 2 mg IV Q4H PRN PRN Reason: Seizures Magnesium Hydroxide (Milk Of Magnesia) 30 ml PO Q4H PRN PRN Reason: Constipation Morphine Sulfate (Morphine) 2 mg IV Q4H PRN PRN Reason: Pain, Moderate (4-6) Ondansetron HCl (Zofran) 4 mg IV Q8H PRN PRN Reason: Nausea And Vomiting Sodium Chloride (Sodium Chloride Flush Syringe 10 Ml) 10 ml IV BID LYNN Sodium Chloride (Sodium Chloride Flush Syringe 10 Ml) 10 ml IV PRN PRN PRN Reason: LINE FLUSH Review of Systems All systems: negative (except as per HPI;) Physical Examination - Vital Signs Vital Signs: Vital Signs Pulse Ox 99 02/22/20 20:57 - Additional Exam Additional Exam: Patient received Ativan 2 mg 30 minutes prior Gen: nad, well-nourished; Head: normocephalic; Eyes: no gaze deviation; no ptosis appreciated; ENT: no vocalization; CVS: warm and well-perfused; Pulm: no respiratory distress; GI: protuberant; Ext: no cyanosis at distal extremities w/ left BKA; Skin: no acute rash at distal extremities; Heme: no external nasal blood; Neuro: stuporous, regards briefly and then is not able to cooperate. Results - Laboratory Findings CBC and BMP: 02/22/20 21:10 02/22/20 21:10 Abnormal Lab Findings: Abnormal Labs 02/22/20 02/22/20 02/22/20 21:10 21:10 21:10 WBC 15.6 H Plt Count 79 L Seg Neuts % (Manual) 90.0 H Lymphocytes % (Manual) 4.0 L Seg Neutrophils # Man 14.0 H Lymphocytes # (Manual) 0.6 L Carbon Dioxide 20 L BUN 21 H Creatinine 1.5 H Glucose 158 H Lactic Acid 6.40 H* Direct Bilirubin 0.3 H Total Creatine Kinase 393 H TSH 02/22/20 02/22/20 02/23/20 21:10 22:28 00:50 WBC Plt Count Seg Neuts % (Manual) Lymphocytes % (Manual) Seg Neutrophils # Man Lymphocytes # (Manual) Carbon Dioxide BUN Creatinine Glucose Lactic Acid 4.80 H* 2.90 H* Direct Bilirubin Total Creatine Kinase TSH 4.520 H Assessment and Plan 59 yo male with liver dx (portal htn), dm, arthritis, who presents with a seizure episode. 1. Seizure - ativan 1 g q6 hrs prn generalized seizure; MRI Brain w wo contrast if no contraindications (may be delayed until GFR improves); Keppra 750 mg iv/po bid; pending EEG. 2. Seizure precautions. Denny Boyer MD Neurology
[2020-02-23] MEDS: levETIRAcetam 500 MG in DEXTROSE 5% IN WATER 100 ML IV SCH ×2 (10:14→21:48)
--- NOTE | 2020-02-23 13:39 | Event Note ---
Date: 02/23/20 Patient seen and examined patient noted sleeping but became alert on verbal commend answered appropriately no focal deficit noted denied any headache or vision change Spoke to Dr Knox in length pending CT head from this am as patient wouldn't stay still Spoke with the RN and recommended to get the CT done as there is a concern for brain hemorrhage Spoke with daughter and updated about patient's clinical status, answered all questions to her satisfaction Will transfer the patient to IMCU for close monitoring with concern for possible intraventricular hemorrhage
[2020-02-23] MEDS: SODIUM CHLORIDE 0.9% 1000 ML 1,000 ML IV SCH ×2 (14:05→19:45)
[2020-02-23 15:36] LABS: BUN/Creatinine Ratio 18; Blood Urea Nitrogen 20 mg/dL (9-20); Calcium 8.7 mg/dL (8.4-10.2); Hemolysis Index 8
[2020-02-23] MEDS: NICOTINE 14 MG/24 HR PATCH TD SCH (21:48)
[2020-02-23] MEDS: GABAPENTIN 400 MG CAP PO SCH (21:48)
--- NOTE | 2020-02-23 23:02 | Cat Scan Report ---
CT head/brain wo con INDICATION: Eval for possible brain hemorrhage, Previous CT Head was negative. TECHNIQUE: Routine CT head without contrast. All CT scans at this location are performed using CT dos e reduction for ALARA by means of automated exposure control. COMPARISON: 02/22/2020 CT head FINDINGS: BRAIN / INTRACRANIAL CONTENTS: No acute hemorrhage, mass effect, midline shift, or hydrocephalus. No appreciable acute large territorial or lacunar infarct. No chronic infarct. Age-commensurate ventricu lar and cisternal/sulcal prominence. No extra-axial blood or fluid collection. ORBITS: No significant abnormality of visualized orbits. SINUSES / MASTOIDS: No significant abnormality of visualized sinuses and mastoid air cells. ADDITIONAL FINDINGS: None. IMPRESSION: 1. No acute intracranial abnormality. Signer Name: Lobo Esteban MD Signed: 02/23/2020 10:57 PM Workstation Name: [id number]
[2020-02-24 06:13] LABS: Basophils % (Auto) 0.2 % (0.0-1.8); Eosinophils % (Auto) 0.9 % (0.0-4.3); Hematocrit 33.5 % (35.5-45.6); Lymphocytes # (Auto) 0.8 K/mm3 (1.2-5.4); Lymphocytes % (Auto) 14.8 % (13.4-35.0); Mean Corpuscular HGB Conc 36 % (32-34); Mean Corpuscular Volume 92 fl (84-94); Monocytes # (Auto) 0.4 K/mm3 (0.0-0.8); Monocytes % (Auto) 8.8 % (0.0-7.3); Red Blood Count 3.64 M/mm3 (3.65-5.03); Red Cell Distribution Width 14.2 % (13.2-15.2)
[2020-02-24 06:15] LABS: INR 1.11 (0.87-1.13)
[2020-02-24 06:22] LABS: BUN/Creatinine Ratio 19; Blood Urea Nitrogen 23 mg/dL (9-20); Calcium 8.2 mg/dL (8.4-10.2); Hemolysis Index 6
[2020-02-24] MEDS: HEPARIN 5,000 UNIT/1 ML VIAL SUB-Q SCH ×3 (06:29→21:43)
[2020-02-24] MEDS: GABAPENTIN 400 MG CAP PO SCH ×3 (06:29→21:43)
[2020-02-24] MEDS: SODIUM CHLORIDE 0.9% 1000 ML 1,000 ML IV SCH (06:30)
[2020-02-24 06:32] LABS: Platelet Count 52 K/mm3 (140-440)
[2020-02-24] MEDS: INSULIN LISPRO 100 UNIT/ML VIAL 3 mL SUB-Q SCH ×4 (10:27→21:43)
[2020-02-24] MEDS: NICOTINE 14 MG/24 HR PATCH TD SCH (10:28)
[2020-02-24] MEDS: levETIRAcetam 500 MG in DEXTROSE 5% IN WATER 100 ML IV SCH (10:33)
--- NOTE | 2020-02-24 14:27 | Progress Note ---
Assessment and Plan --AIMEE, vasolotor nephropathy Improved with iv fluid, follow BMP --Acute encephalopathy Current Visit: Yes Status: Acute Plan to address problem: Possibly secondary to seizure disorder. Currently possibly postictal. We will monitor closely and also place on seizure precautions. -- Hypertensive emergency Current Visit: Yes Status: Acute Plan to address problem: We will place patient on IV medication as needed for blood pressure control. Will monitor vital signs closely. -- Seizure Current Visit: Yes Status: Acute Plan to address problem: Patient started on Keppra. We will request neurology evaluation. We will also request EEG. -- Diabetes Current Visit: No Status: Chronic Qualifiers: Diabetes mellitus type: type 2 Diabetes mellitus intermediate project manager insulin use: with fpc use Diabetes mellitus complication status: with neurologic complications Diabetes mellitus complication detail: with polyneuropathy Qualified Code(s): E11.42 - Type 2 diabetes mellitus with diabetic polyneuropathy Plan to address problem: We will monitor Accu-Cheks closely. --Lactic acidosis Current Visit: Yes Status: Acute Plan to address problem: Possibly secondary to the seizure activity. Will monitor chemistry and continue IV fluid. -- DVT prophylaxis Current Visit: Yes Status: Acute Plan to address problem: Patient placed on subcutaneous heparin. -- Full code status Current Visit: Yes Status: Acute 02/23: patient clinically improved, more alert and oriented today. repeat CT last night showed no brain hemorrhage. ordered MRI brain today as recommended by Neurology for possible mass/lesion for new onset seizure. if clinically stable possible d/c tomorrow. Subjective Date of service: 02/24/20 Objective - Constitutional Vitals: Vital Signs - 12hr 02/24/20 02/24/20 02/24/20 04:00 04:56 08:37 Temperature 97.8 F 97.9 F Pulse Rate 70 61 64 Respiratory 17 18 Rate Blood Pressure 146/75 140/63 O2 Sat by Pulse 97 98 Oximetry 02/24/20 12:09 Temperature 98.0 F Pulse Rate 60 Respiratory 16 Rate Blood Pressure 150/77 O2 Sat by Pulse 97 Oximetry - Labs CBC & Chem 7: 02/24/20 04:00 02/24/20 04:00 Labs: Abnormal lab results 02/23/20 02/24/20 02/24/20 Range/Units 14:55 04:00 04:00 RBC 3.64 L (3.65-5.03) M/mm3 Hct 33.5 L D (35.5-45.6) % MCH 33 H (28-32) pg MCHC 36 H (32-34) % Plt Count 52 L (140-440) K/mm3 Cocke % (Auto) 8.8 H (0.0-7.3) % Lymph # (Auto) 0.8 L (1.2-5.4) K/mm3 Seg Neutrophils % 75.3 H (40.0-70.0) % Chloride 107.8 H (98-107) mmol/L BUN 23 H (9-20) mg/dL Glucose 129 H (75-100) mg/dL POC Glucose (70-105) mg/dL Calcium 8.2 L (8.4-10.2) mg/dL 02/24/20 Range/Units 11:26 RBC (3.65-5.03) M/mm3 Hct (35.5-45.6) % MCH (28-32) pg MCHC (32-34) % Plt Count (140-440) K/mm3 Cocke % (Auto) (0.0-7.3) % Lymph # (Auto) (1.2-5.4) K/mm3 Seg Neutrophils % (40.0-70.0) % Chloride (98-107) mmol/L BUN (9-20) mg/dL Glucose (75-100) mg/dL POC Glucose 117 H (70-105) mg/dL Calcium (8.4-10.2) mg/dL HEART Score - HEART Score Troponin: Troponin T 0.020 ng/mL (0.00-0.029) 02/22/20 22:28
--- NOTE | 2020-02-24 16:15 | Magnetic Resonance Report ---
MRI BRAIN 02/24/2020 INDICATION / CLINICAL INFORMATION: new onset seizure. TECHNIQUE: Multiplanar, multisequence MR images of the brain were obtained. COMPARISON: CT brain 02/23/2020 FINDINGS: BRAIN / INTRACRANIAL CONTENTS: Unenhanced and enhanced MR images of the brain were obtained and olvin red to a CT scan from 03/04/2020. There is no evidence of acute ischemic injury. There are some abnormal areas of increased T2-weighted signal present in the occipital cortex bilaterally, slightly more extensively on the right. Some add itional small areas of cortical and subcortical signal change are present in the high right frontal l obe. There also appears to be some subtle increased signal present in the cerebellar hemispheres bila terally and peripherally, slightly more pronounced on the left. There is no associated diffusion signal abnormality or enhancement. On the FLAIR images, there is evidence of a small amount of extra-axial fluid or blood products along the right posterior parietal and occipital lobes, with a maximum thickness of 1 to 2 mm. This is not visible on CT, and is likely to be too small for CT detectability. Ventricles and sulci are normal in size and shape. There is no evidence of focal mass. Postcontrast images demonstrate subtle thickening and enhancement of the dura overlying primarily the right cerebral convexities, and to a lesser degree the left frontal lobe. EXTRACRANIAL: Unremarkable CRANIOCERVICAL JUNCTION: No significant abnormality. VASCULAR FLOW-VOIDS: No significant abnormality. IMPRESSION: 1. Patchy areas of cortical and subcortical T2 weighted signal change in the occipital and frontal lo bes, and possibly the cerebellum. This pattern may be associated with posterior reversible encephalop athy syndrome (press). This can be seen in post ictal state or associated with vascular or metabolic pathologies. There is no evidence of restricted diffusion or acute ischemic injury. 2. Possible very small subdural collection over the right parietal occipital lobes as described above . 3. Subtle dural thickening and enhancement, right greater than left. These findings may be related to post traumatic state. Signer Name: Dario Syed MD Signed: 02/24/2020 4:11 PM Workstation Name: [id number]
[2020-02-24] MEDS: levETIRAcetam 500 MG TAB PO SCH (21:43)
[2020-02-25] MEDS: SODIUM CHLORIDE 0.9% 1000 ML 1,000 ML IV SCH (05:21)
[2020-02-25] MEDS: HEPARIN 5,000 UNIT/1 ML VIAL SUB-Q SCH ×2 (05:22→14:00)
[2020-02-25] MEDS: GABAPENTIN 400 MG CAP PO SCH ×2 (05:23→13:58)
[2020-02-25] MEDS: levETIRAcetam 500 MG TAB PO SCH (09:20)
[2020-02-25] MEDS: NICOTINE 14 MG/24 HR PATCH TD SCH (09:20)
[2020-02-25] MEDS: INSULIN LISPRO 100 UNIT/ML VIAL 3 mL SUB-Q SCH ×2 (09:21→13:58)
[2020-02-25] MEDS ORDERED: levETIRAcetam 500 MG TAB PO SCH (10:00)
[2020-02-25] MEDS ORDERED: amLODIPine 10 MG TAB PO SCH (11:00)
[2020-02-25] MEDS ORDERED: levETIRAcetam 500 MG/5 ML ORAL LIQD PO SCH (11:00)
--- NOTE | 2020-02-25 13:06 | Discharge Summary ---
Providers - Providers Date of Admission: 02/23/20 00:24 Date of discharge: 02/25/20 Attending physician: JOHNNIE FISH 02/23/20 01:42 Consult to Dietitian/Nutrition [CONS] Routine Physician Instructions: Reason For Exam: Reason for Consult: Diet education Consult to Physician [CONS] Routine Comment: Consulting Provider: DENILSON FARFAN Physician Instructions: Reason For Exam: Seizure disorder 02/23/20 18:18 Consult to Physician [CONS] Routine Comment: Consulting Provider: JOAQUIM ANN II Physician Instructions: Reason For Exam: Brain hemorrhage 02/25/20 10:00 Physical Therapy Evaluation and Treat [CONS] Routine Comment: Reason For Exam: placement Primary care physician: TAR PROCESSING TECHNICIAN Hospitalization Condition: Stable Pertinent studies: CT head x2 MRI brain with and without contrast Chest x-ray Hospital course: Discharge diagnosis: Acute encephalopathy, likely due to press syndrome due to acute seizure and hypertensive emergency AIMEE, vasomotor nephropathy, resolved Hypertensive emergency, resolved New onset seizure Diabetes mellitus type 2 Lactic acidosis, due to dehydration and seizure Status post left BKA Tobacco abuse History of alcohol abuse with hepatic cirrhosis History of hepatitis C Disposition: [id number]-06 HOME UNDER HOME [facility] Time spent for discharge: 34 minutes Core Measure Documentation - Palliative Care Palliative Care/ Comfort Measures: Not Applicable - Core Measures Any of the following diagnoses?: history only Exam - Constitutional Vitals: Temp Pulse Resp BP Pulse Ox 97.9 F 75 18 183/93 97 02/25/20 12:30 02/25/20 12:30 02/25/20 12:30 02/25/20 12:30 02/25/20 12:30 Plan Activity: fall precautions Weight Bearing Status: Non-Weight Bearing Diet: low fat Special Instructions: record daily BP diary Follow up with: PRIMARY CARE, [Primary Care Provider] - 3-5 Days Prescriptions: amLODIPine 10 mg PO QDAY #30 tablet hydrALAZINE [Apresoline TAB] 50 mg PO Q8HR #90 tablet levETIRAcetam [Keppra TAB] 750 mg PO BID #60 tablet
[2020-02-25 13:59] VITALS: BP 166/95
[2020-02-25] MEDS ORDERED: hydrALAZINE 25 MG TAB PO SCH (14:00)
== END 2020-02-25 18:38 | disposition home health service (06) | DRG 100 ==
LOC: ED 20:30 → 4A 02-23 00:24
PROVIDERS: ADMIT Internal Medicine Geriatric Medicine; ATTEND Internal Medicine
DX: G40.909 Epilepsy, unspecified, not intractable, without status epilepticus (principal); N17.0 Acute kidney failure with tubular necrosis; G93.41 Metabolic encephalopathy; I16.1 Hypertensive emergency; E87.2 Acidosis; M19.019 Primary osteoarthritis, unspecified shoulder; F41.9 Anxiety disorder, unspecified; K74.60 Unspecified cirrhosis of liver; E11.9 Type 2 diabetes mellitus without complications; Z89.512 Acquired absence of left leg below knee; Z79.899 Other long term (current) drug therapy; Z79.84 Long term (current) use of oral hypoglycemic drugs; Z79.891 Long term (current) use of opiate analgesic; Z79.01 Long term (current) use of anticoagulants; Z88.2 Allergy status to sulfonamides; Z91.041 Radiographic dye allergy status; Z86.19 Personal history of other infectious and parasitic diseases; Z87.442 Personal history of urinary calculi
CPT/HCPCS: 36415; 70450; 70553; 71045; 80048; 80076; 80307; 80320; 81001; 82140; 82550; 82962; 84443; 84484; 85007; 85025; 85610; 87040; 90471; 99406; G0378; A9577; G0480; J1644; J1953; J2060; J2405; J2543; J7030

== ENCOUNTER 2020-11-02 12:48 | Outpatient (CLI) | payer MEDICARE | END 2020-11-02 12:49 | disposition home or self-care (01) | LOC: LAB 12:48 | PROVIDERS: ATTEND Internal Medicine | DX: E87.5 Hyperkalemia (principal) | CPT/HCPCS: 36415; 84132 ==